=== PATIENT | female | born 1990 | race Caucasian/White ===

== ENCOUNTER 2021-05-13 14:24 | Emergency (ER) | payer OTHER, MEDICARE, MEDICAID, SELFPAY ==
--- NOTE | ~2021-05-13 | CT_ITS ---
EXAMINATION: CT ABDOMEN AND PELVIS WITHOUT CONTRAST CLINICAL INFORMATION: Abdominal pain COMPARISON: CT abdomen and pelvis 04/23/2018 TECHNIQUE: Multidetector volumetric imaging was performed from the superior aspect of the liver through the pubic symphysis. Sagittal and coronal reformatted images were obtained on the technologist's workstation. This CT examination was performed using dose optimization techniques as appropriate, variously including the following: *Automated exposure control *Adjustment of mA and/or kV according to patient size (this includes techniques or standardized protocols for targeted exams where dose is matched to indication/reason for exam; i.e. extremities or head) *Use of iterative reconstruction technique DLP: 462 mGy-cm FINDINGS: LUNG BASES: The visualized lung bases are unremarkable. LIVER, GALLBLADDER, AND BILIARY TREE: The liver is normal in size, shape, and attenuation. No focal hepatic lesion or biliary ductal dilatation is present. Gallbladder is unremarkable. PANCREAS: Unremarkable. SPLEEN: Unremarkable. ADRENAL GLANDS: Unremarkable. KIDNEYS AND URETERS: The kidneys are normal in size, shape, and attenuation. No hydronephrosis, hydroureter, or calculi seen. No perinephric stranding. BLADDER: Unremarkable. GASTROINTESTINAL TRACT: The distal esophagus and stomach are unremarkable. The small and large bowel are nondilated. There is a normal appendix. While nondistended, there is questionable mild wall thickening of the transverse colon. No other bowel inflammatory changes seen. ABDOMINAL WALL: No significant hernia is appreciated. LYMPH NODES: Normal. VASCULAR: Unremarkable. PELVIC VISCERA: Unremarkable appearance of the uterus. There is a 1.7 cm low-attenuation structure in the left adnexa which may represent a dominant follicle or small cyst. OSSEOUS STRUCTURES: Unremarkable. CT/CT abdomen pelvis wo con IMPRESSION: While evaluation of the bowel is mildly limited, there is question mild wall thickening of the transverse colon. Would correlate for colitis. 1.7 cm low-attenuation structure in the left adnexa representing a dominant follicle or tiny ovarian cyst. If clinically warranted, further evaluation with ultrasound could be considered.
[2021-05-13 14:40] VITALS: BP 138/83; PULSE 96; RESP 22; TEMP 36.9; O2SAT 98; BMI 23.3
--- NOTE | 2021-05-13 16:47 | ED_ITS ---
HPI - Abdominal Pain General Chief Complaint: Abdominal Pain Stated Complaint: abd pain, vomiting Time Seen by Provider: 05/13/21 16:42 Source: patient Limitations: no limitations History of Present Illness HPI narrative: This is a 30 years old the female presented with a chief complaint of abdominal pain nausea vomiting for about 2 days. She denies any diarrhea any fever. MD elicited complaint: abdominal pain Pertinent past history: other (cyclic vomiting) Onset (ago): day(s) (2) Pain Consistency: constant Severity: moderate Quality: cramping Radiation: none Migration to: no migration Exacerbating factors: nothing Relieving factors: nothing Related Data Allergies Allergy/AdvReac Type Severity Reaction Status Date / Time morphine [MORPHINE] Allergy Unknown HAND Verified 05/13/21 14:42 SWELLING From COMPAZINE AdvReac Severe MUSCLE Uncoded 05/18/20 15:57 SPASMS AND LOCKJAW Review of Systems Review of Systems Yes all other systems are reviewed and are negative Constitutional: Reports no additional constitutional complaints Cardiovascular: Reports no additional cardiovascular complaints Respiratory: Reports no additional respiratory complaints Gastrointestinal: Reports abdominal pain, Denies diarrhea, Reports nausea and Reports vomiting Skin/Breast: Reports system reviewed and no additional complaints, except as docu Physical Exam Vital Signs: Vital Signs: Last Vital Signs Temp 98.8 F 05/13/21 19:21 Pulse 45 L 05/13/21 20:00 Resp 16 05/13/21 20:00 BP 111/60 05/13/21 20:00 Pulse Ox 96 05/13/21 20:00 Body Mass Index 23.3 Const: General: cooperative and anxious Nutritional Appearance: average body habitus Orientation/consciousness: patient oriented x3 HENMT: Head: Yes normal to inspection Face and sinus: Yes normal facial exam Mouth: Normal oral and palatal mucosa present Throat: Yes posterior oropharynx normal Neck: Neck: Yes normal visual inspection Thyroid: Thyroid normal Lymphatic: no lymphadenopathy noted Chest: Chest palpation & inspection: normal inspection of the chest Resp: Effort & Inspection: normal respiratory effort Auscultation: clear to auscultation bilaterally Cardio: Jugular venous distension: no JVD Rate: regular rate GI: Inspection: Yes normal to inspection and Yes abdominal wall ecchymosis Palpation (GI): Soft to palpation, not firm, nontender, no guarding and not rigid Auscultation: normal bowel sounds Neuro: General: patient oriented x3 Course Reevaluation(s) Reevaluation #2: Patient was re-examined at this time she is doing much better ; multiple presentations like this in the past. Usually she goes to [facility]. I reviewed the record the of [facility] she was admitted from May 11 to (yesterday) [facility] note mention that the patient has history of marijuana abuse. Pt was disharged Yesterday from [facility] with diagnosis of cannabis hyperemesis syndrome MDM - Abdominal Pain Lab Data Result diagrams: 05/13/21 17:20 05/13/21 17:20 Labs: Lab Results 05/13/21 05/13/21 05/13/21 Range/Units 17:20 17:20 21:29 WBC 11.6 H (4.8-10.8) X10*3/uL RBC 4.24 (4.20-5.50) X10*6/uL Hgb 12.9 (12.0-16.0) g/dl Hct 36.6 L (37-47) % MCV 86.3 (80-98) fL MCH 30.4 (27.0-33.0) pg MCHC 35.2 H (31.0-35.0) g/dl RDW 12.6 (11.0-16.0) % Plt Count 225 (160-400) X10*3/uL MPV 11.5 (9.4-12.3) fL Immature Gran % (Auto) 0.3 (0.0-0.4) % Neut % (Auto) 85.1 H (45-73) % Lymph % (Auto) 9.1 L (20-40) % [place] % (Auto) 5.3 (2-11) % Eos % (Auto) 0.0 (0-4) % Baso % (Auto) 0.2 (0-2) % Lymph # (Auto) 1.1 L (1.2-4.9) X10*3/uL [place] # (Auto) 0.6 (0.1-1.2) X10*3/uL Eos # (Auto) 0.0 (0.0-0.4) X10*3/uL Baso # (Auto) 0.0 (0.0-0.2) X10*3/uL Abs Immat Gran (auto) 0.03 (0.00-0.03) X10*3/uL Absolute Neuts (auto) 9.9 H (2.0-8.3) X10*3/uL Absolute Nucleated RBC 0.000 (0.0-0.012) X10*3/uL Nucleated RBC % (auto) 0.0 (0.0-0.2) /100WBC Sodium 138 (135-145) mmol/L Potassium 4.0 (3.3-5.1) mmol/L Chloride 104 (96-108) mmol/L Carbon Dioxide 18 L (22-29) mmol/L Anion Gap 20 (12-20) BUN 15 (9-16) mg/dL Creatinine 0.71 (0.5-1.4) mg/dL Estim Creat Clear Calc 102.3 Estimated GFR > 60 Random Glucose 90 (60-115) mg/dL Calcium 9.6 (8.4-10.2) mg/dL Total Bilirubin 0.5 (0.0-1.0) mg/dL AST 20 (5-31) U/L ALT 13 (0-31) U/L Alkaline Phosphatase 51 (39-117) U/L Total Protein 7.9 (6.5-8.0) g/dL Albumin 4.8 (3.5-5.0) g/dL Lipase 31 (8-78) U/L Beta HCG, Quant < 2 mIU/mL Urine Opiates Screen Not Detected (Not Detect) Urine Fentanyl Screen Not Detected (Not Detect) Ur Barbiturates Screen Not Detected (Not Detect) Ur Phencyclidine Scrn Not Detected (Not Detect) Ur Amphetamines Screen Not Detected (Not Detect) U Benzodiazepines Scrn Not Detected (Not Detect) Urine Cocaine Screen Not Detected (Not Detect) U Marijuana (THC) Screen POSITIVE H (Not Detect) Imaging Data CT scan - abdomen: Radiologist's impression: owel are nondilated. There is a normal appendix. While nondistended, there is questionable mild wall thickening of the transverse colon. No other bowel inflammatory changes seen. ABDOMINAL WALL: No significant hernia is appreciated.? LYMPH NODES: Normal. VASCULAR: Unremarkable. PELVIC VISCERA: Unremarkable appearance of the uterus. There is a 1.7 cm low-attenuation structure in the left adnexa which may represent a dominant follicle or small cyst.? OSSEOUS STRUCTURES: Unremarkable.? CT/CT abdomen pelvis wo con IMPRESSION: While evaluation of the bowel is mildly limited, there is question mild wall thickening of the transverse colon. Would correlate for colitis. ? 1.7 cm low-attenuation structure in the left adnexa representing a dominant follicle or tiny ovarian cyst. If clinically warranted, further evaluation with ultrasound could be considered.? Dictated By: Mj Baires MD Signed By: <Electronically signed by Mj Baires MD in OV> 05/13/212050 DD/ 02 TD/TT:? Torpedoman'S Mate: DC Discharge Plan Discharge Clinical Impression: Vomiting, Cyclic vomiting syndrome Patient Disposition: Home, Self-Care Instructions: Acute Nausea and Vomiting (ED) Referrals: Physician,Unknown [Primary Care Provider] - 2 days Interventions: ED Discharge Assessment Last Done: 05/13/21 21:56 Discharge Date/Time: 05/13/21 22:03 [facility] Past Medical History Medical History Cyclic vomiting syndrome Social History Social History Advance Directives: No Advance Directives Information Provided: Yes Patient : No
[2021-05-13 17:25] LABS: MANUAL DIFF FLAG NO
[2021-05-13 17:26] LABS: Basophils Percent Auto 0.2 % (0-2); Hematocrit 36.6 % (37-47); Hemoglobin 12.9 g/dl (12.0-16.0); Imm Gran Abs Auto 0.03 X10*3/uL (0.00-0.03); Imm Gran Pct Auto 0.3 % (0.0-0.4); Lymphocytes Absolute Auto 1.1 X10*3/uL (1.2-4.9); Lymphocytes Percent Auto 9.1 % (20-40); Mean Corpuscular HGB Conc 35.2 g/dl (31.0-35.0); Mean Corpuscular Hemoglobin 30.4 pg (27.0-33.0); Mean Corpuscular Volume 86.3 fL (80-98); Mean Platelet Volume 11.5 fL (9.4-12.3); Monocytes Absolute Auto 0.6 X10*3/uL (0.1-1.2); Monocytes Percent Auto 5.3 % (2-11); Neutrophils Absolute Auto 9.9 X10*3/uL (2.0-8.3); Neutrophils Percent Auto 85.1 % (45-73); Platelet Count 225 X10*3/uL (160-400); Red Blood Count 4.24 X10*6/uL (4.20-5.50); Red Cell Distribution Width 12.6 % (11.0-16.0); White Blood Count 11.6 X10*3/uL (4.8-10.8)
[2021-05-13] MEDS: ondansetron HCL 4 MG/2 ML VIAL IVPUSH (17:29)
[2021-05-13] MEDS: LORazepam 2 MG/ML VIAL 1 MG IVPUSH ×2 (17:29→17:49)
[2021-05-13] MEDS: 0.9 % Sodium Chloride 1,000 ML 999 ML IVCONT ×2 (17:36→17:52)
[2021-05-13 17:43] LABS: Alanine Aminotransferase 13 U/L (0-31); Albumin Level 4.8 g/dL (3.5-5.0); Alkaline Phosphatase 51 U/L (39-117); Anion Gap 20 (12-20); Aspartate Amino Transferase 20 U/L (5-31); Bilirubin Total 0.5 mg/dL (0.0-1.0); Blood Urea Nitrogen 15 mg/dL (9-16); Calcium 9.6 mg/dL (8.4-10.2); Carbon Dioxide 18 mmol/L (22-29); Chloride 104 mmol/L (96-108); Creatinine Clr Calc Pharmacy 102.3; Estimated Glomerular Filt Rate > 60; Glucose Random 90 mg/dL (60-115); Lipase 31 U/L (8-78); Sodium 138 mmol/L (135-145); Total Protein 7.9 g/dL (6.5-8.0)
[2021-05-13 17:46] LABS: HCG Quantitative < 2 mIU/mL
[2021-05-13] MEDS: HYDROmorphone HCl 0.5 MG/0.5 ML SYRINGE IVPUSH ×2 (17:50→19:28)
[2021-05-13 19:21] VITALS: BP 128/65; PULSE 56; RESP 16; TEMP 37.1; O2SAT 99
[2021-05-13 20:00] VITALS: BP 111/60; PULSE 45; RESP 16; O2SAT 96
--- NOTE | 2021-05-13 21:33 | PC.NURSE ---
JUST IN ROOM WITH PT FOR RE EVALUATION, PLANS FOR DISCHARGE HOME. PT CALLING BOYFRIEND FOR RIDE. PT HAD ICE CHIPS WITH NO VOMITING AFTER.
[2021-05-13 22:03] LABS: Amphetamine Screen Urine Not Detected (Not Detect); Barbiturates, Urine Not Detected (Not Detect); Benzodiazepines Screen Urine Not Detected (Not Detect); Cannabinoid Screen Urine POSITIVE (Not Detect); Cocaine Screen Urine Not Detected (Not Detect); Fentanyl, urine Not Detected (Not Detect); Opiate Screen Urine Not Detected (Not Detect); Phencyclidine Screen Urine Not Detected (Not Detect)
== END 2021-05-13 22:03 | disposition home or self-care (01) ==
PROVIDERS: Emergency Provider Emergency Medicine
DX: R11.15 Cyclical vomiting syndrome unrelated to migraine (principal); F12.90 Cannabis use, unspecified, uncomplicated; R10.9 Unspecified abdominal pain; Z79.899 Other long term (current) drug therapy
CPT/HCPCS: 36415; 74176; 80053; 80307; 83690; 84702; 85025; 96365; 96375; 96376; 99284; J1170; J2060; J2405

== ENCOUNTER 2021-05-14 05:57 | Emergency (ER) | payer OTHER, MEDICARE, MEDICAID, SELFPAY ==
[2021-05-14 06:19] VITALS: BP 154/85; PULSE 69; RESP 18; TEMP 36.6; O2SAT 100; BMI 23.3
--- NOTE | 2021-05-14 11:31 | ED.NAVMDI ---
HPI - Nausea/Vomiting/Diarrhea General Chief complaint: Nausea/Vomiting/Diarrhea Stated complaint: nausea, vomiting Time Seen by Provider: 05/14/21 11:28 Source: patient and old records reviewed Mode of arrival: ambulatory Limitations: no limitations History of Present Illness MD elicited complaint: nausea, vomiting and abdominal pain Pertinent past history: cyclical vomiting Onset (ago): day(s) (3) Description of vomiting: food contents, watery and bilious Associated nausea: Yes Associated abdominal pain: Yes Location of pain: epigastric Radiation: diffuse Pain consistency: constant Severity: similar to previous episodes Quality: stabbing Exacerbating factors: eating Relieving factors: none Context: marijuana use Associated symptoms: loss of appetite, malaise and nausea/vomiting Related Data Home Medications Medication Instructions Recorded Confirmed desogestrel 0.15 mg-ethinyl 1 tab PO DAILY 05/14/21 05/14/21 estradiol 0.03 mg tablet (Apri) lorazepam 0.5 mg tablet 1 tab PO TID PRN 05/14/21 05/14/21 ondansetron HCl 4 mg tablet 1 tab PO Q8H PRN 05/14/21 05/14/21 Previous Rx's Medication Instructions Recorded lorazepam 1 mg tablet (Ativan) 1 mg PO BEDTIME PRN #5 tab 05/14/21 omeprazole 40 mg capsule,delayed 40 mg PO DAILY 14 Days #14 cap 05/14/21 release ondansetron 4 mg disintegrating 4 mg PO Q8H PRN #20 tab 05/14/21 tablet promethazine 25 mg rectal 25 mg HI Q6H PRN #12 ea 05/14/21 suppository Allergies Allergy/AdvReac Type Severity Reaction Status Date / Time morphine [MORPHINE] Allergy Unknown HAND Verified 05/13/21 14:42 SWELLING From COMPAZINE AdvReac Severe MUSCLE Uncoded 05/18/20 15:57 SPASMS AND LOCKJAW Review of Systems Review of Systems: Constitutional : No Weight loss, No Fever, No Chills ENT/Mouth : No sore throat, No Rhinorrhea Eyes: No Swelling, No Redness Cardiovascular : No Chest Pain, No SOB, NoEdema Respiratory : No Cough, No Sputum, No Wheezing Gastrointestinal : Positive Nausea, Positive Vomiting, no Diarrhea, positive abdominal Pain, No Hematochezia, No Melena Genitourinary : No Dysuria, No Urinary Frequency, No Hematuria, No Urgency Musculoskeletal : No joint pain, No Myalgias, No Joint Swelling Skin : No Skin Lesions, No rash Neuro : No Weakness, No Numbness, No Dizziness, No Headache Psych : No Anxiety/Panic, No Depression Heme/Lymph: No Bruising, No Lymphadenopathy Endocrine : No Polyuria, No Polydipsia All other systems reviewed and are negative. Gastrointestinal: Gastrointestinal: Reports nausea PMFSH Past Medical History Attestation statement: The following information was validated with the patient. Source: old records reviewed Medical History Cyclic vomiting syndrome Social History Social History (Updated 05/14/21 @ 11:34 by Abbey Martell DO) Patient Tobacco Use Status: Tobacco use Unknown Substance Use Type: Marijuana Advance Directives: No Advance Directives Information Provided: Yes Physical Exam Vital Signs: Vital Signs: Last Vital Signs Temp 98.7 F 05/14/21 16:48 Pulse 58 05/14/21 16:48 Resp 18 05/14/21 16:48 BP 127/58 L 05/14/21 16:48 Pulse Ox 99 05/14/21 16:48 Body Mass Index 23.3 Appearance: Alert. Oriented X3. Active vomiting, moderate acute distress Eyes: Pupils equal, round and reactive to light. ENT: Pharynx normal. Neck: Normal inspection. Neck supple. CVS: tachycardic heart rate and rhythm. Pulses normal. Respiratory: No respiratory distress. Breath sounds normal. Abdomen: Soft and moderate epigastric ttp no rebound Skin: Skin warm and dry. pale skin color. Normal skin turgor. Extremities: No lower extremity edema. No calf ttp Neuro: Oriented X 3. No motor deficit. No sensory deficit. Course Course Course Narrative: repeatedly asking for dilaudid I need it it's the only thing that works. I have done research on this. I want another doctor who will give it to me. IM medications and suppository ordered, she was moving around significantly - line placed under US is no longer useable has stopped vomiting can be DC at this time states she wants to go home Procedures EJ/Peripheral Line Arm R: Time Out Performed: Yes Skin Cleansed in Sterile Fashion: Yes Size (gauge): 20 IV Secured and Dressing Applied: Yes Patient Tolerated Procedure: well and no complications MDM - Nausea/Vomiting/Diarrhea MDM Narrative Medical decision making narrative: 30 yo female with hx of THC use and cyclical vomiting comes in with c/o abdominal pain and vomiting - seen at [facility] and yesterday for the same at this time, anti-emetics and IV ativan for supportive care. Labs and dispo per results and ability to tolerate PO Lab Data Result diagrams: 05/14/21 13:35 05/14/21 13:35 Labs: Lab Results 05/14/21 05/14/21 Range/Units 13:35 13:35 WBC 11.4 H (4.8-10.8) X10*3/uL RBC 4.11 L (4.20-5.50) X10*6/uL Hgb 12.4 (12.0-16.0) g/dl Hct 35.8 L (37-47) % MCV 87.1 (80-98) fL MCH 30.2 (27.0-33.0) pg MCHC 34.6 (31.0-35.0) g/dl RDW 12.4 (11.0-16.0) % Plt Count 219 (160-400) X10*3/uL MPV 11.6 (9.4-12.3) fL Immature Gran % (Auto) 0.3 (0.0-0.4) % Neut % (Auto) 83.4 H (45-73) % Lymph % (Auto) 10.0 L (20-40) % [place] % (Auto) 6.0 (2-11) % Eos % (Auto) 0.0 (0-4) % Baso % (Auto) 0.3 (0-2) % Lymph # (Auto) 1.1 L (1.2-4.9) X10*3/uL [place] # (Auto) 0.7 (0.1-1.2) X10*3/uL Eos # (Auto) 0.0 (0.0-0.4) X10*3/uL Baso # (Auto) 0.0 (0.0-0.2) X10*3/uL Abs Immat Gran (auto) 0.03 (0.00-0.03) X10*3/uL Absolute Neuts (auto) 9.5 H (2.0-8.3) X10*3/uL Absolute Nucleated RBC 0.000 (0.0-0.012) X10*3/uL Nucleated RBC % (auto) 0.0 (0.0-0.2) /100WBC Sodium 137 (135-145) mmol/L Potassium 3.5 (3.3-5.1) mmol/L Chloride 105 (96-108) mmol/L Carbon Dioxide 16 L (22-29) mmol/L Anion Gap 20 (12-20) BUN 9 (9-16) mg/dL Creatinine 0.66 (0.5-1.4) mg/dL Estim Creat Clear Calc 110.1 Estimated GFR > 60 Random Glucose 75 (60-115) mg/dL Calcium 8.6 D (8.4-10.2) mg/dL Magnesium 2.3 (1.6-2.6) mg/dL Total Bilirubin 0.6 (0.0-1.0) mg/dL Direct Bilirubin 0.3 (0.0-0.5) mg/dL AST 18 (5-31) U/L ALT 8 (0-31) U/L Alkaline Phosphatase 47 (39-117) U/L Total Protein 6.7 (6.5-8.0) g/dL Albumin 4.3 (3.5-5.0) g/dL Lipase 13 (8-78) U/L Discharge Plan Discharge Clinical Impression: Cyclical vomiting Patient Disposition: Home, Self-Care Instructions: Acute Nausea and Vomiting (ED) Additional Instructions: return to ED for any worsening symptoms or concerns Prescriptions: New promethazine 25 mg suppository 25 mg HI Q6H PRN (Reason: nausea and vomiting) Qty: 12 RF: 0 ondansetron 4 mg tablet,disintegrating 4 mg PO Q8H PRN (Reason: nausea and vomiting) Qty: 20 RF: 0 omeprazole 40 mg capsule,delayed release(DR/EC) 40 mg PO DAILY 14 Days Qty: 14 RF: 0 lorazepam [Ativan] 1 mg tablet 1 mg PO BEDTIME PRN (Reason: sleep) Qty: 5 RF: 0 No Action desogestrel-ethinyl estradiol [Apri] 0.15-0.03 mg tablet 1 tab PO DAILY RF: 0 ondansetron HCl 4 mg tablet 1 tab PO Q8H PRN (Reason: nausea/vomiting) RF: 0 lorazepam 0.5 mg tablet 1 tab PO TID PRN (Reason: anxiety) RF: 0 Stand Alone Forms: Work/School Release
[2021-05-14 11:58] VITALS: BP 145/86; PULSE 70; RESP 19; TEMP 36.6; O2SAT 100
[2021-05-14] MEDS: Metoclopramide HCl 10 MG/2 ML VIAL 5 MG IVPUSH (13:42)
[2021-05-14] MEDS: diphenhydrAMINE HCL 50 MG/ML VIAL 25 MG IVPUSH (13:42)
[2021-05-14] MEDS: LORazepam 2 MG/ML VIAL IVPUSH (13:42)
[2021-05-14] MEDS: 0.9 % Sodium Chloride 1,000 ML 999 ML IVCONT (13:42)
[2021-05-14 13:49] LABS: MANUAL DIFF FLAG NO
[2021-05-14 13:50] LABS: Basophils Percent Auto 0.3 % (0-2); Hematocrit 35.8 % (37-47); Hemoglobin 12.4 g/dl (12.0-16.0); Imm Gran Abs Auto 0.03 X10*3/uL (0.00-0.03); Imm Gran Pct Auto 0.3 % (0.0-0.4); Lymphocytes Absolute Auto 1.1 X10*3/uL (1.2-4.9); Mean Corpuscular HGB Conc 34.6 g/dl (31.0-35.0); Mean Corpuscular Hemoglobin 30.2 pg (27.0-33.0); Mean Corpuscular Volume 87.1 fL (80-98); Mean Platelet Volume 11.6 fL (9.4-12.3); Monocytes Absolute Auto 0.7 X10*3/uL (0.1-1.2); Neutrophils Absolute Auto 9.5 X10*3/uL (2.0-8.3); Neutrophils Percent Auto 83.4 % (45-73); Platelet Count 219 X10*3/uL (160-400); Red Blood Count 4.11 X10*6/uL (4.20-5.50); Red Cell Distribution Width 12.4 % (11.0-16.0); White Blood Count 11.4 X10*3/uL (4.8-10.8)
[2021-05-14 14:20] LABS: Alanine Aminotransferase 8 U/L (0-31); Albumin Level 4.3 g/dL (3.5-5.0); Alkaline Phosphatase 47 U/L (39-117); Anion Gap 20 (12-20); Aspartate Amino Transferase 18 U/L (5-31); Bilirubin Direct 0.3 mg/dL (0.0-0.5); Bilirubin Total 0.6 mg/dL (0.0-1.0); Blood Urea Nitrogen 9 mg/dL (9-16); Calcium 8.6 mg/dL (8.4-10.2); Carbon Dioxide 16 mmol/L (22-29); Chloride 105 mmol/L (96-108); Creatinine Clr Calc Pharmacy 110.1; Estimated Glomerular Filt Rate > 60; Glucose Random 75 mg/dL (60-115); Lipase 13 U/L (8-78); Magnesium 2.3 mg/dL (1.6-2.6); Potassium 3.5 mmol/L (3.3-5.1); Sodium 137 mmol/L (135-145); Total Protein 6.7 g/dL (6.5-8.0)
[2021-05-14] MEDS: HYDROmorphone HCl 2 MG/ML VIAL IM (15:51)
[2021-05-14 16:48] VITALS: BP 127/58; PULSE 58; RESP 18; TEMP 37.1; O2SAT 99
== END 2021-05-14 18:25 | disposition home or self-care (01) ==
PROVIDERS: Emergency Provider Emergency Medicine
DX: G43.A0 Cyclical vomiting, in migraine, not intractable (principal); F12.90 Cannabis use, unspecified, uncomplicated; Z79.899 Other long term (current) drug therapy
CPT/HCPCS: 36415; 80048; 80076; 83690; 83735; 85025; 96361; 96372; 96374; 96375; 96376; 99283; 99284; J1170; J1200; J2060; J2765

== ENCOUNTER 2021-05-16 03:01 | Emergency (ER) | payer OTHER, MEDICARE, MEDICAID, SELFPAY ==
[2021-05-16 03:23] VITALS: BP 161/113; PULSE 112; RESP 18; TEMP 36.1; O2SAT 100; BMI 21.9
[2021-05-16 03:52] LABS: COVID-19 Test Negative (Negative)
--- NOTE | 2021-05-16 04:30 | PC.NURSE ---
pt requesting medication for abdominal pain. pt states Dilaudid usually works they gave it to me last time. provider notified.
[2021-05-16 05:03] LABS: Basophils Percent Auto 0.3 % (0-2); Eosinophils Percent Auto 0.1 % (0-4); Hematocrit 39.9 % (37-47); Hemoglobin 14.2 g/dl (12.0-16.0); Imm Gran Abs Auto 0.05 X10*3/uL (0.00-0.03); Imm Gran Pct Auto 0.4 % (0.0-0.4); Lymphocytes Absolute Auto 1.3 X10*3/uL (1.2-4.9); Lymphocytes Percent Auto 11.6 % (20-40); MANUAL DIFF FLAG NO; Mean Corpuscular HGB Conc 35.6 g/dl (31.0-35.0); Mean Corpuscular Hemoglobin 30.2 pg (27.0-33.0); Mean Corpuscular Volume 84.9 fL (80-98); Monocytes Absolute Auto 1.1 X10*3/uL (0.1-1.2); Monocytes Percent Auto 9.1 % (2-11); Neutrophils Percent Auto 78.5 % (45-73); Platelet Count 254 X10*3/uL (160-400); Red Cell Distribution Width 12.3 % (11.0-16.0); White Blood Count 11.5 X10*3/uL (4.8-10.8)
--- NOTE | 2021-05-16 05:06 | PC.NURSE ---
patient coming to the nurses station with no mask asking to be seen by provider. where is the retail sales manager or pa, someone needs to see me . provider is seeing multiple critical patient, provider is aware that patient is here to be seen.
--- NOTE | 2021-05-16 05:13 | PC.NURSE ---
pt ambulated to charge nurse desk without mask properly on her face stating she she needs something for the pain . this nurse reassured pt that the provider would be with her as soon as possible. this nurse instructed pt to properly wear mask and assisted pt back to her stretcher (1 calderón). this nurse provided pt with warm blankets for comfort and new emesis bag. provider notified
[2021-05-16 05:31] LABS: Alanine Aminotransferase 12 U/L (0-31); Albumin Level 4.8 g/dL (3.5-5.0); Alkaline Phosphatase 59 U/L (39-117); Anion Gap 22 (12-20); Aspartate Amino Transferase 15 U/L (5-31); Bilirubin Direct 0.4 mg/dL (0.0-0.5); Bilirubin Total 1.2 mg/dL (0.0-1.0); Blood Urea Nitrogen 11 mg/dL (9-16); Calcium 9.7 mg/dL (8.4-10.2); Carbon Dioxide 16 mmol/L (22-29); Chloride 103 mmol/L (96-108); Estimated Glomerular Filt Rate > 60; Glucose Random 84 mg/dL (60-115); Lipase 19 U/L (8-78); Potassium 3.1 mmol/L (3.3-5.1); Sodium 138 mmol/L (135-145); Total Protein 7.7 g/dL (6.5-8.0)
--- NOTE | 2021-05-16 05:40 | PC.NURSE ---
this nurse and Priti HUERTA unable to establish IV access on pt. provider notified
[2021-05-16] MEDS: Metoclopramide HCl 10 MG/2 ML VIAL IM (06:00)
[2021-05-16] MEDS: diphenhydrAMINE HCL 50 MG/ML VIAL 25 MG IM (06:00)
--- NOTE | 2021-05-16 06:08 | PC.NURSE ---
this nurse medicated pt with IM benadryl and IM reglan per OCT. while this nurse was administering medications, pt was still requesting to get Dilaudid. provider notified.
--- NOTE | 2021-05-16 06:13 | PC.NURSE ---
pt refusing to have EKG done provider notified
[2021-05-16 06:14] VITALS: RESP 16
--- NOTE | 2021-05-16 07:43 | PC.NURSE ---
Pt states she wants to leave. Pt ambulated out the door with a steady gait. Airway patent. Pt does not appear to be in any distress and is no longer actively vomiting. ceramic tiler made aware.
--- NOTE | 2021-05-16 08:14 | ED.NAVMDI ---
HPI - Nausea/Vomiting/Diarrhea General Chief complaint: Abdominal Pain Stated complaint: vomiting/abd pain/headache Time Seen by Provider: 05/16/21 05:52 Source: patient Mode of arrival: ambulatory History of Present Illness HPI Narrative: 30-year-old female with abdominal pain, vomiting, headache and reports the negative COVID test 2 days ago. Patient reports marijuana use and does have a history cyclical vomiting. Otherwise, he denies any fever, chills, urinary pain/strain/frequency. Related Data Home Medications Medication Instructions Recorded Confirmed desogestrel 0.15 mg-ethinyl 1 tab PO DAILY 05/14/21 05/14/21 estradiol 0.03 mg tablet (Apri) lorazepam 0.5 mg tablet 1 tab PO TID PRN 05/14/21 05/14/21 ondansetron HCl 4 mg tablet 1 tab PO Q8H PRN 05/14/21 05/14/21 Previous Rx's Medication Instructions Recorded lorazepam 1 mg tablet (Ativan) 1 mg PO BEDTIME PRN #5 tab 05/14/21 omeprazole 40 mg capsule,delayed 40 mg PO DAILY 14 Days #14 cap 05/14/21 release ondansetron 4 mg disintegrating 4 mg PO Q8H PRN #20 tab 05/14/21 tablet promethazine 25 mg rectal 25 mg [place] Q6H PRN #12 ea 05/14/21 suppository Allergies Allergy/AdvReac Type Severity Reaction Status Date / Time morphine [MORPHINE] Allergy Unknown HAND Verified 05/13/21 14:42 SWELLING From COMPAZINE AdvReac Severe MUSCLE Uncoded 05/18/20 15:57 SPASMS AND LOCKJAW Review of Systems Review of Systems: Pertinent positives and negatives as stated in HPI 10 point review systems is otherwise negative. [facility] Past Medical History Source: nursing notes reviewed Medical History Cyclic vomiting syndrome Social History Social History Patient Tobacco Use Status: Tobacco use Unknown Substance Use Type: Marijuana Advance Directives: No Advance Directives Information Provided: No Patient : No Physical Exam Vital Signs: Vital Signs: Last Vital Signs Temp 97.0 F 05/16/21 03:23 Pulse 112 H 05/16/21 03:23 Resp 16 05/16/21 06:14 BP 161/113 H 05/16/21 03:23 Pulse Ox 100 05/16/21 03:23 Body Mass Index 21.9 VITAL SIGNS: Reviewed. GENERAL: Well developed, well nourished, in no acute distress. HEAD: Normocephalic/atraumatic EYES: PERRLA, EOMI OROPHARYNX: no oral lesions noted, posterior pharynx deneen LUNGS: Normal breath sounds. No adventitious sounds or accessory muscle use. SpO2<100> CARDIOVASCULAR: Regular rate and rhythm without noted murmurs, no JVD or lower extremity edema. ABDOMEN: Soft, epigastric discomfort but no rebound non-distended with bowel sounds. NEUROLOGIC: Alert and oriented x 4. Course Course Course Narrative: 30-year-old female with history and clinical presentation after review of all investigations most consistent with cyclical vomiting with resolution of symptoms after receiving Zofran and Reglan. MDM - Nausea/Vomiting/Diarrhea Lab Data Result diagrams: 05/16/21 04:59 05/16/21 04:59 Labs: Lab Results 05/16/21 05/16/21 05/16/21 Range/Units 03:25 04:59 04:59 WBC 11.5 H (4.8-10.8) X10*3/uL RBC 4.70 (4.20-5.50) X10*6/uL Hgb 14.2 (12.0-16.0) g/dl Hct 39.9 (37-47) % MCV 84.9 (80-98) fL MCH 30.2 (27.0-33.0) pg MCHC 35.6 H (31.0-35.0) g/dl RDW 12.3 (11.0-16.0) % Plt Count 254 (160-400) X10*3/uL MPV 11.0 (9.4-12.3) fL Immature Gran % (Auto) 0.4 (0.0-0.4) % Neut % (Auto) 78.5 H (45-73) % Lymph % (Auto) 11.6 L (20-40) % [place] % (Auto) 9.1 (2-11) % Eos % (Auto) 0.1 (0-4) % Baso % (Auto) 0.3 (0-2) % Lymph # (Auto) 1.3 (1.2-4.9) X10*3/uL [place] # (Auto) 1.1 (0.1-1.2) X10*3/uL Eos # (Auto) 0.0 (0.0-0.4) X10*3/uL Baso # (Auto) 0.0 (0.0-0.2) X10*3/uL Abs Immat Gran (auto) 0.05 H (0.00-0.03) X10*3/uL Absolute Neuts (auto) 9.0 H (2.0-8.3) X10*3/uL Absolute Nucleated RBC 0.000 (0.0-0.012) X10*3/uL Nucleated RBC % (auto) 0.0 (0.0-0.2) /100WBC Sodium 138 (135-145) mmol/L Potassium 3.1 L (3.3-5.1) mmol/L Chloride 103 (96-108) mmol/L Carbon Dioxide 16 L (22-29) mmol/L Anion Gap 22 H (12-20) BUN 11 (9-16) mg/dL Creatinine 0.77 (0.5-1.4) mg/dL Estim Creat Clear Calc 102.0 Estimated GFR > 60 Random Glucose 84 (60-115) mg/dL Calcium 9.7 D (8.4-10.2) mg/dL Total Bilirubin 1.2 H (0.0-1.0) mg/dL Direct Bilirubin 0.4 (0.0-0.5) mg/dL AST 15 (5-31) U/L ALT 12 (0-31) U/L Alkaline Phosphatase 59 D (39-117) U/L Total Protein 7.7 (6.5-8.0) g/dL Albumin 4.8 (3.5-5.0) g/dL Lipase 19 (8-78) U/L COVID-19 ([facility]) Negative (Negative) COVID-19 Clin Com See Note Discharge Plan Discharge Clinical Impression: Cyclical vomiting Patient Disposition: Elopement Prescriptions: No Action desogestrel-ethinyl estradiol [Apri] 0.15-0.03 mg tablet 1 tab PO DAILY RF: 0 ondansetron HCl 4 mg tablet 1 tab PO Q8H PRN (Reason: nausea/vomiting) RF: 0 lorazepam 0.5 mg tablet 1 tab PO TID PRN (Reason: anxiety) RF: 0 promethazine 25 mg suppository 25 mg [place] Q6H PRN (Reason: nausea and vomiting) Qty: 12 RF: 0 ondansetron 4 mg tablet,disintegrating 4 mg PO Q8H PRN (Reason: nausea and vomiting) Qty: 20 RF: 0 omeprazole 40 mg capsule,delayed release(DR/EC) 40 mg PO DAILY 14 Days Qty: 14 RF: 0 lorazepam [Ativan] 1 mg tablet 1 mg PO BEDTIME PRN (Reason: sleep) Qty: 5 RF: 0 Discharge Date/Time: 05/16/21 07:20
== END 2021-05-16 07:20 | disposition left against medical advice (07) ==
PROVIDERS: Emergency Provider Student in an Organized Health Care Education/Training Program
DX: R10.9 Unspecified abdominal pain (principal); R11.15 Cyclical vomiting syndrome unrelated to migraine; R51.9 Headache, unspecified; F12.90 Cannabis use, unspecified, uncomplicated; Z20.822 Contact with and (suspected) exposure to COVID-19; Z79.899 Other long term (current) drug therapy
CPT/HCPCS: 36415; 80048; 80076; 83690; 85025; 87635; 96372; 96374; 96375; 99284; J1200; J2765

== ENCOUNTER 2021-06-26 17:06 | Emergency (ER) | payer OTHER, MEDICARE, MEDICAID, SELFPAY ==
--- NOTE | ~2021-06-26 | US_ITS ---
EXAMINATION: US PELVIS WITH DOPPLER CLINICAL INFORMATION: Question torsion COMPARISON: CT 06/26/2021 TECHNIQUE: Ultrasound of the pelvis is performed using both transabdominal and transvaginal transducers along with Doppler. Transvaginal imaging is performed due to inadequate visualization transabdominally. FINDINGS: The uterus measures 9.2 cm in length and 3.8 x 5.9 cm in AP and transverse dimensions. Endometrial stripe measures 0.5 cm in thickness. The right ovary measures 5.1 x 3.2 x 4.4 cm and contains a complex cyst measuring 4.4 x 3.7 x 3.8 cm with internal septations. Doppler evaluation demonstrates arterial and venous flow in the right ovary. The left ovary measures 3.1 x 1.5 x 2.5 cm and appears unremarkable. Arterial and venous flow is demonstrated in the left ovary. Small amount of free fluid is noted. US/US pelvic ovarian doppler IMPRESSION: 1. No specific findings of ovarian torsion. 2. Complex right ovarian cyst measuring up to 4.4 cm, favored to represent a hemorrhagic cyst; follow-up ultrasound in 6-8 weeks is advised to assess for resolution. 3. Small amount of nonspecific pelvic free fluid.
--- NOTE | ~2021-06-26 | CT_ITS ---
EXAMINATION: CT ABDOMEN AND PELVIS WITH CONTRAST CLINICAL INFORMATION: Abdominal pain COMPARISON: 05/13/2021 TECHNIQUE: Multidetector volumetric images were obtained from the superior aspect of the liver through the pubic symphysis following administration 85 mL of Omnipaque 350 intravenous contrast. Sagittal and coronal reformatted images were obtained on the technologist's workstation. Oral contrast: No This CT examination was performed using dose optimization techniques as appropriate, variously including the following: *Automated exposure control *Adjustment of mA and/or kV according to patient size (this includes techniques or standardized protocols for targeted exams where dose is matched to indication/reason for exam; i.e. extremities or head) *Use of iterative reconstruction technique DLP: 358 mGy-cm FINDINGS: LUNG BASES: The visualized lung bases are unremarkable. LIVER, GALLBLADDER, AND BILIARY TREE: The liver is normal in size, shape, and attenuation. A small focal region of hypoattenuation adjacent to the falciform ligament could be due to focal fatty infiltration or alterations in hepatic perfusion. Tiny hypodensity in the inferior right hepatic lobe is suggestive of a cyst, too small to characterize. No biliary ductal dilatation is present. The gallbladder is unremarkable with no evidence of radiopaque gallstones, gallbladder wall thickening, or obvious pericholecystic inflammatory changes. PANCREAS: Unremarkable. SPLEEN: Unremarkable. ADRENAL GLANDS: Unremarkable. KIDNEYS AND URETERS: The kidneys are normal in size, shape, and attenuation. No hydronephrosis, hydroureter, or obstructing calculi seen. No perinephric stranding. BLADDER: Unremarkable. GASTROINTESTINAL TRACT: Assessment for wall thickening in some segments of the colon is limited due to luminal collapse, though no significant pericolonic stranding is seen to strongly suggest a colitis. No evidence of bowel obstruction. The appendix is unremarkable. No free air is seen. ABDOMINAL WALL: No significant hernia is appreciated. LYMPH NODES: Normal. VASCULAR: There is mild calcification at the aortic bifurcation. PELVIC VISCERA: Right adnexal cyst measures up to approximately 5 cm in diameter, presumably ovarian in origin and new since 05/13/2021. Trace amount of pelvic free fluid noted. OSSEOUS STRUCTURES: Unremarkable. CT/CT abdomen pelvis w con IMPRESSION: Right adnexal cyst measuring up to 5 cm, presumably ovarian and new compared to prior. Ultrasound follow-up in 6-8 weeks would be helpful to assess for resolution. Trace pelvic free fluid noted.
--- NOTE | ~2021-06-26 | US_ITS ---
EXAMINATION: US PELVIS WITH DOPPLER CLINICAL INFORMATION: Question torsion COMPARISON: CT 06/26/2021 TECHNIQUE: Ultrasound of the pelvis is performed using both transabdominal and transvaginal transducers along with Doppler. Transvaginal imaging is performed due to inadequate visualization transabdominally. FINDINGS: The uterus measures 9.2 cm in length and 3.8 x 5.9 cm in AP and transverse dimensions. Endometrial stripe measures 0.5 cm in thickness. The right ovary measures 5.1 x 3.2 x 4.4 cm and contains a complex cyst measuring 4.4 x 3.7 x 3.8 cm with internal septations. Doppler evaluation demonstrates arterial and venous flow in the right ovary. The left ovary measures 3.1 x 1.5 x 2.5 cm and appears unremarkable. Arterial and venous flow is demonstrated in the left ovary. Small amount of free fluid is noted. US/US pelvic and transvaginal IMPRESSION: 1. No specific findings of ovarian torsion. 2. Complex right ovarian cyst measuring up to 4.4 cm, favored to represent a hemorrhagic cyst; follow-up ultrasound in 6-8 weeks is advised to assess for resolution. 3. Small amount of nonspecific pelvic free fluid.
[2021-06-26 17:32] VITALS: BP 148/79; PULSE 72; RESP 24; TEMP 36.1; O2SAT 98
[2021-06-26 19:17] VITALS: BP 170/87; PULSE 78; RESP 16; TEMP 36.8; O2SAT 100
--- NOTE | 2021-06-26 19:58 | PC.NURSE ---
pt is a difficult strick, dr bower is aware and plan for ij when ready.
--- NOTE | 2021-06-26 20:13 | PC.NURSE ---
pt rocking in the bed, bent over on her knees in bed. pt has no iv access due to diffucult stick.
[2021-06-26 20:47] LABS: Basophils Percent Auto 0.1 % (0-2); Hematocrit 33.9 % (37-47); Hemoglobin 11.9 g/dl (12.0-16.0); Imm Gran Abs Auto 0.03 X10*3/uL (0.00-0.03); Imm Gran Pct Auto 0.3 % (0.0-0.4); Lymphocytes Absolute Auto 0.5 X10*3/uL (1.2-4.9); Lymphocytes Percent Auto 5.6 % (20-40); MANUAL DIFF FLAG SCAN; Mean Corpuscular HGB Conc 35.1 g/dl (31.0-35.0); Mean Corpuscular Hemoglobin 30.1 pg (27.0-33.0); Mean Corpuscular Volume 85.8 fL (80-98); Mean Platelet Volume 10.7 fL (9.4-12.3); Monocytes Absolute Auto 0.2 X10*3/uL (0.1-1.2); Monocytes Percent Auto 1.6 % (2-11); Neutrophils Absolute Auto 8.6 X10*3/uL (2.0-8.3); Neutrophils Percent Auto 92.4 % (45-73); Platelet Count 305 X10*3/uL (160-400); Red Blood Count 3.95 X10*6/uL (4.20-5.50); Red Cell Distribution Width 13.5 % (11.0-16.0); SCAN SMEAR FLAG 1; White Blood Count 9.3 X10*3/uL (4.8-10.8)
[2021-06-26] MEDS: 0.9 % Sodium Chloride 1,000 ML 999 ML IV ×2 (20:47)
[2021-06-26 20:48] VITALS: BP 163/84; PULSE 86; RESP 20; O2SAT 100
[2021-06-26 21:07] LABS: SLIDE REVIEW VERIFIED
[2021-06-26] MEDS: ondansetron HCL 4 MG/2 ML VIAL IVPUSH (21:13)
[2021-06-26] MEDS: LORazepam 2 MG/ML VIAL 1 MG IVPUSH (21:14)
--- NOTE | 2021-06-26 21:14 | PC.NURSE ---
unable to scan ativan due to orange sticker covering the bar code.
[2021-06-26 21:25] LABS: Delay - Chemistry DELAY
--- NOTE | 2021-06-26 21:29 | ED.NAVMDI ---
HPI - Nausea/Vomiting/Diarrhea General Chief complaint: Nausea/Vomiting/Diarrhea Stated complaint: general medical? Time Seen by Provider: 06/26/21 19:07 History of Present Illness HPI Narrative: Patient 30 years old presents today with having extreme nausea vomiting. Patient has a history of cyclic vomiting. Usually related to marijuana use. Patient denies using marijuana today. No fever no chills no cough no congestion or upper respiratory symptoms. The nausea vomiting sick stream. It is associated with epigastric pain. It is the same as last time. There is no bloody stool no diarrhea noted. Patient is from home. Attempted to use hot shower to no avail. No history of abdominal surgery in the past Related Data Home Medications Medication Instructions Recorded Confirmed desogestrel 0.15 mg-ethinyl 1 tab PO DAILY 05/14/21 05/14/21 estradiol 0.03 mg tablet (Apri) lorazepam 0.5 mg tablet 1 tab PO TID PRN 05/14/21 05/14/21 ondansetron HCl 4 mg tablet 1 tab PO Q8H PRN 05/14/21 05/14/21 Previous Rx's Medication Instructions Recorded lorazepam 1 mg tablet (Ativan) 1 mg PO BEDTIME PRN #5 tab 05/14/21 omeprazole 40 mg capsule,delayed 40 mg PO DAILY 14 Days #14 cap 05/14/21 release ondansetron 4 mg disintegrating 4 mg PO Q8H PRN #20 tab 05/14/21 tablet promethazine 25 mg rectal 25 mg CO Q6H PRN #12 ea 05/14/21 suppository Allergies Allergy/AdvReac Type Severity Reaction Status Date / Time morphine [MORPHINE] Allergy Unknown HAND Verified 05/13/21 14:42 SWELLING From COMPAZINE AdvReac Severe MUSCLE Uncoded 05/18/20 15:57 SPASMS AND LOCKJAW Review of Systems Review of Systems: Positive nausea vomiting Yes all other systems are reviewed and are negative PMFSH Past Medical History Attestation statement: The following information was validated with the patient. Medical History Cyclic vomiting syndrome Social History Social History Patient Tobacco Use Status: Tobacco use Unknown Substance Use Type: Marijuana Advance Directives: No Advance Directives Information Provided: Yes Patient : No Physical Exam Vital Signs: Vital Signs: Last Vital Signs Temp 98.3 F 06/26/21 19:17 Pulse 94 06/27/21 00:00 Resp 16 06/27/21 00:03 BP 161/84 H 06/27/21 00:00 Pulse Ox 97 06/27/21 00:00 Body Mass Index 20.0 Appearance: Alert. Oriented X3. No acute distress. Eyes: Pupils equal, round and reactive to light. ENT: Pharynx normal. Neck: Normal inspection. Neck supple. No lymph nodes noted. No crepitus CVS: Normal heart rate and rhythm. Pulses normal. Normal S1 and S2 Respiratory: No respiratory distress. Breath sounds normal. No Wheezing. No rales Abdomen: Soft and nontender. No rigidity. No distention. good BS x4 Skin: Skin warm and dry. Normal skin color. Normal skin turgor. Extremities: No lower extremity edema. Neurovascular intact to all extremities. No Lacerations. No Rash Neuro: Oriented X 3. No motor deficit. No sensory deficit. Moving all extermities. No slurred speech MDM - Nausea/Vomiting/Diarrhea MDM Narrative Medical decision making narrative: Patient has a previous history of cyclic vomiting likely secondary to marijuana use in the past. Today complaining of increasing nausea vomiting similar to previous episode extreme abdominal pain. White count is normal. Patient's electrolytes consistent with some dehydration. IV fluids given. CT scan of the abdomen did not show any acute evidence of obstruction, abscess, perforation. It did show a 5 cm right adnexal cyst. An ultrasound was ordered to rule out torsion. Otherwise patient's workup has been negative. Given 1 dose of pain medication so patient can receive her ultrasound. She is currently in stable condition. Pending ultrasound result. Repeat exam was soft nontender. Medical Records Attestation: I reviewed the patient's medical records. Lab Data Attestation: I reviewed the patient's lab results. Result diagrams: 06/26/21 20:40 06/26/21 21:17 Labs: Lab Results 06/26/21 06/26/21 06/26/21 Range/Units 20:40 21:17 21:24 WBC 9.3 (4.8-10.8) X10*3/uL RBC 3.95 L (4.20-5.50) X10*6/uL Hgb 11.9 L (12.0-16.0) g/dl Hct 33.9 L (37-47) % MCV 85.8 (80-98) fL MCH 30.1 (27.0-33.0) pg MCHC 35.1 H (31.0-35.0) g/dl RDW 13.5 (11.0-16.0) % Plt Count 305 (160-400) X10*3/uL MPV 10.7 (9.4-12.3) fL Immature Gran % (Auto) 0.3 (0.0-0.4) % Neut % (Auto) 92.4 H (45-73) % Lymph % (Auto) 5.6 L (20-40) % [place] % (Auto) 1.6 L (2-11) % Eos % (Auto) 0.0 (0-4) % Baso % (Auto) 0.1 (0-2) % Lymph # (Auto) 0.5 L (1.2-4.9) X10*3/uL [place] # (Auto) 0.2 (0.1-1.2) X10*3/uL Eos # (Auto) 0.0 (0.0-0.4) X10*3/uL Baso # (Auto) 0.0 (0.0-0.2) X10*3/uL Abs Immat Gran (auto) 0.03 (0.00-0.03) X10*3/uL Absolute Neuts (auto) 8.6 H (2.0-8.3) X10*3/uL Absolute Nucleated RBC 0.000 (0.0-0.012) X10*3/uL Nucleated RBC % (auto) 0.0 (0.0-0.2) /100WBC Smear Tech's Comments VERIFIED Sodium 140 (135-145) mmol/L Potassium 3.8 D (3.3-5.1) mmol/L Chloride 107 (96-108) mmol/L Carbon Dioxide 16 L (22-29) mmol/L Anion Gap 21 H (12-20) BUN 13 (9-16) mg/dL Creatinine 0.73 (0.5-1.4) mg/dL Estim Creat Clear Calc 95.0 Estimated GFR > 60 Random Glucose 116 H (60-115) mg/dL Calcium 10.2 (8.4-10.2) mg/dL Total Bilirubin 0.7 (0.0-1.0) mg/dL Direct Bilirubin 0.3 (0.0-0.5) mg/dL AST 15 (5-31) U/L ALT 11 (0-31) U/L Alkaline Phosphatase 55 (39-117) U/L Total Protein 8.4 H (6.5-8.0) g/dL Albumin 5.4 H (3.5-5.0) g/dL Lipase 12 (8-78) U/L Beta HCG, Quant < 2 mIU/mL Specimen Comment DELAY Discharge Plan Discharge Clinical Impression: Dehydration, Cyclic vomiting syndrome Patient Disposition: Home, Self-Care Instructions: Acute Nausea and Vomiting (ED) Prescriptions: No Action desogestrel-ethinyl estradiol [Apri] 0.15-0.03 mg tablet 1 tab PO DAILY RF: 0 ondansetron HCl 4 mg tablet 1 tab PO Q8H PRN (Reason: nausea/vomiting) RF: 0 lorazepam 0.5 mg tablet 1 tab PO TID PRN (Reason: anxiety) RF: 0 promethazine 25 mg suppository 25 mg CO Q6H PRN (Reason: nausea and vomiting) Qty: 12 RF: 0 ondansetron 4 mg tablet,disintegrating 4 mg PO Q8H PRN (Reason: nausea and vomiting) Qty: 20 RF: 0 omeprazole 40 mg capsule,delayed release(DR/EC) 40 mg PO DAILY 14 Days Qty: 14 RF: 0 lorazepam [Ativan] 1 mg tablet 1 mg PO BEDTIME PRN (Reason: sleep) Qty: 5 RF: 0 Referrals: Physician,Unknown J [Primary Care Provider] - 2 days
[2021-06-26 21:48] LABS: Alanine Aminotransferase 11 U/L (0-31); Albumin Level 5.4 g/dL (3.5-5.0); Alkaline Phosphatase 55 U/L (39-117); Anion Gap 21 (12-20); Aspartate Amino Transferase 15 U/L (5-31); Bilirubin Direct 0.3 mg/dL (0.0-0.5); Bilirubin Total 0.7 mg/dL (0.0-1.0); Blood Urea Nitrogen 13 mg/dL (9-16); Calcium 10.2 mg/dL (8.4-10.2); Carbon Dioxide 16 mmol/L (22-29); Chloride 107 mmol/L (96-108); Estimated Glomerular Filt Rate > 60; Glucose Random 116 mg/dL (60-115); Lipase 12 U/L (8-78); Potassium 3.8 mmol/L (3.3-5.1); Sodium 140 mmol/L (135-145); Total Protein 8.4 g/dL (6.5-8.0)
--- NOTE | 2021-06-26 21:48 | PC.NURSE ---
medication zofran and ativan effectiive, pt is sleeping vitals stable. no s/s/ of distress.
[2021-06-26 22:19] LABS: HCG Quantitative < 2 mIU/mL
[2021-06-26] MEDS: iohexoL 350 MG/ML 100 ML INFUS..BTL IV (23:23)
[2021-06-27] VITALS: BP 161/84; PULSE 94; RESP 16; O2SAT 97
[2021-06-27 00:03] VITALS: RESP 16
[2021-06-27] MEDS: HYDROmorphone HCl 0.5 MG/0.5 ML SYRINGE IVPUSH (00:03)
[2021-06-27] MEDS: 0.9 % Sodium Chloride 1,000 ML 999 ML IV (02:11)
--- NOTE | 2021-06-27 02:49 | PC.NURSE ---
pt is ready for discharge ij is positional and pt is not remembering to keep her head to the right. ivf total is 2L and is max of ivf the pt is to received per dr leal.
[2021-06-27 02:51] VITALS: BP 161/84; PULSE 94; RESP 16
[2021-06-27] MEDS: diphenhydrAMINE HCL 50 MG/ML VIAL IVPUSH (03:03)
[2021-06-27 03:54] VITALS: BP 156/90; PULSE 104; O2SAT 100
== END 2021-06-27 03:55 | disposition home or self-care (01) ==
PROVIDERS: Emergency Medicine Emergency Medical Services; Emergency Provider Emergency Medicine
DX: E86.0 Dehydration (principal); R11.15 Cyclical vomiting syndrome unrelated to migraine; F12.90 Cannabis use, unspecified, uncomplicated
CPT/HCPCS: 36415; 74177; 76830; 76856; 80048; 80076; 83690; 84702; 85025; 93975; 96361; 96372; 96374; 96375; 99284; 99285; J1170; J1200; J2060; J2405; Q9967